=== PATIENT | female | born 1980 | race Caucasian/White ===

== ENCOUNTER 2016-05-11 12:56 | Emergency (ER) | payer BC ==
[~2016-05-11] VITALS: Ht 154.9 cm; Wt 83.5 kg
[2016-05-11 13:00] VITALS: BP 158/85
--- NOTE | 2016-05-11 13:00 | NUR ---
Patient to Bed 07.
[2016-05-11] MEDS ORDERED: ONDANSETRON 4 MG/2 ML VIAL IVP ONE (13:10)
[2016-05-11] MEDS ORDERED: NITROGLYCERIN 0.4 MG TAB SL ONE (13:10)
[2016-05-11] MEDS ORDERED: ASPIRIN 81 MG TAB.CHEW PO ONE (13:10)
--- NOTE | 2016-05-11 13:15 | NUR ---
Dr. Mir evaluating patient at bedside.
--- NOTE | 2016-05-11 13:20 | NUR ---
PATIENT PRESENTS TO ED WITH mid sternal chest pain crushing non provoked 7/10 radiating straight back--- . PT STATES recently recovery from cold symptoms, persistant hacking cough. mild nause; SKIN IS PINK/WARM/mildly diaphoretic; AAOX4 WITH EVEN AND STEADY GAIT; LUNGS CLEAR BL; HR EVEN AND REGULAR; PT DENIES ANY FEVER,SOB, OR COUGH AT THIS TIME; PATIENT STATES PAIN OF 7/10 AT THIS TIME; VSS; PATIENT POSITIONED FOR COMFORT; HOB ELEVATED; BEDRAILS UP X2; BED DOWN. ER MD MADE AWARE OF PT STATUS.
--- NOTE | 2016-05-11 13:26 | NUR ---
XRAY at bedside.
[2016-05-11] MEDS ORDERED: KETOROLAC 30 MG/ML VIAL IVP ONE (13:30)
--- NOTE | 2016-05-11 13:50 | NUR ---
chest pain subsided from 08/14 to a 05/15---will continue to observe and monitor for pain control
[2016-05-11 14:03] LABS: BASOPHILS # (AUTO) 0.1 K/uL (0.00-0.22); BASOPHILS % (AUTO) 0.9 % (0.0-2.0); EOSINOPHILS # (AUTO) 0.3 K/uL (0-0.4); EOSINOPHILS % (AUTO) 3.6 % (0.0-4.0); HEMATOCRIT 40.4 % (36-48); HEMOGLOBIN 13.3 g/dL (12.0-16.0); LYMPHOCYTES # (AUTO) 2.1 K/uL (2.5-16.5); LYMPHOCYTES % (AUTO) 25.2 % (20.5-51.1); MEAN CORPUSCULAR HEMOGLOBIN 29 pg (27-31); MEAN CORPUSCULAR HGB CONC 33 g/dL (33-37); MEAN CORPUSCULAR VOLUME 89 fL (80-94); MONOCYTES # (AUTO) 0.6 K/uL (0.8-1.0); MONOCYTES % (AUTO) 7.3 % (1.7-9.3); NEUTROPHILS # (AUTO) 5.1 K/uL (1.8-7.7); PLATELET COUNT (AUTO) 317 K/uL (140-450); RED BLOOD CELL COUNT(AUTO) 4.56 MIL/uL (4.20-5.40); RED CELL DISTRIBUTION WIDTH 12.6 % (11.6-13.7); WHITE BLOOD COUNT (AUTO) 8.2 K/uL (4.8-10.8)
[2016-05-11 14:19] LABS: ANION GAP 11.4 (8-16); CALCIUM 8.2 mg/dL (8.5-10.1); CARBON DIOXIDE 27.4 mmol/L (21-32); CREATININE 0.9 mg/dL (0.6-1.3); POTASSIUM 3.8 mmol/L (3.5-5.1)
[2016-05-11 14:25] LABS: TOTAL BILIRUBIN 0.5 mg/dL (0.0-1.0); TOTAL PROTEIN, SERUM 7.5 g/dL (6.4-8.2)
[2016-05-11 14:32] LABS: D-DIMER < 100 ng/ml (0-400)
[2016-05-11 14:38] LABS: INR 1.2 (0.8-1.2); PARTIAL THROMBOPLASTIN TIME 25.6 secs (22-35.6); PROTHROMBIN TIME 10.9 secs (10.8-13.4)
[2016-05-11] MEDS ORDERED: HYDROmorphone 1 MG/ML AMP IVP ONE (15:40)
--- NOTE | 2016-05-11 15:40 | NUR ---
c/o mid sternal chest pain crushing radiating back 08/14---MD notified, will medicate
--- NOTE | 2016-05-11 15:54 | NUR ---
medicated as written--will continue to observe for pain control
--- NOTE | 2016-05-11 16:43 | NUR ---
PT SITTING UP IN [facility], ADMITS PAIN REMAINS BELOW TOLERABLE LEVEL OF 410---MD AT BEDSIDE. AWAITS DISCHARGE PAPERWORK TO BE PRINTED AND SIGNED BY MD---PT A/O X4 FULL CLEAR SPEECH--DENIES DIZZINESS, NO N/V, NO ANG
--- NOTE | 2016-05-11 17:02 | NUR ---
AWAITS SECOND TROP RESULT
--- NOTE | 2016-05-11 17:45 | NUR ---
SECOND TROP NEGATIVE, NOTIFIED---DC HOME INSTRUCTION INITIATED--
[2016-05-11 17:58] VITALS: BP 133/87
== END 2016-05-11 17:57 | disposition home or self-care (01) ==
LOC: EEVIPCON 12:58 → MED 12:58
DX: R09.1 Pleurisy (principal); Z88.0 Allergy status to penicillin; Z88.8 Allergy status to other drugs, medicaments and biological substances; R50.9 Fever, unspecified; R11.0 Nausea
CPT/HCPCS: 36415; 71010; 80053; 83880; 84484; 85025; 85379; 85610; 85730; 93005; 96374; 96375; 99285; J1170; J1885; J2405; Q0092